=== PATIENT | male | born 1990 | race Caucasian/White ===

== ENCOUNTER 2016-12-30 18:40 | Emergency (ER) | payer OTHER | END 2016-12-30 19:00 | disposition home or self-care (01) | LOC: ER 18:40 | DX: J11.1 Influenza due to unidentified influenza virus with other respiratory manifestations (principal); R51 Headache; F17.220 Nicotine dependence, chewing tobacco, uncomplicated | CPT/HCPCS: 87502 ==

== ENCOUNTER 2017-01-06 04:01 | Emergency (ER) | payer OTHER | END 2017-01-06 04:20 | disposition left against medical advice (07) | LOC: ER 04:01 | DX: F15.129 Other stimulant abuse with intoxication, unspecified (principal); F17.200 Nicotine dependence, unspecified, uncomplicated ==

== ENCOUNTER 2017-03-23 15:04 | Emergency (ER) | payer OTHER | END 2017-03-23 15:34 | disposition home or self-care (01) | LOC: ER 15:04 | DX: K04.7 Periapical abscess without sinus (principal); K02.9 Dental caries, unspecified; F17.220 Nicotine dependence, chewing tobacco, uncomplicated ==

== ENCOUNTER 2017-03-24 18:52 | Emergency (ER) | payer OTHER | END 2017-03-24 19:39 | disposition home or self-care (01) | LOC: ER 18:52 | DX: K04.7 Periapical abscess without sinus (principal); K02.9 Dental caries, unspecified; F17.220 Nicotine dependence, chewing tobacco, uncomplicated ==